=== PATIENT | male | born 1955 ===

== ENCOUNTER → 2020-12-11 15:00 | Outpatient (CLI) | payer OTHER | END | disposition home or self-care (01) | LOC: PPH VACUNA 15:00 | DX: Z23 Encounter for immunization (principal) ==

== ENCOUNTER 2021-01-01 14:23 | Outpatient (CLI) | payer OTHER | END 2021-01-01 14:24 | disposition home or self-care (01) | LOC: PPH VACUNA 14:23 | DX: Z23 Encounter for immunization (principal) ==